=== PATIENT | female | born 2005 | race Caucasian/White ===

== ENCOUNTER 2024-06-21 13:03 | Emergency (ER) | payer BC, SELFPAY ==
[2024-06-21 13:10] VITALS: BP 114/73; PULSE 115; RESP 18; TEMP 37.8; O2SAT 100; BMI 17.9
--- NOTE | 2024-06-21 13:24 | ED.GENADULT ---
HPI - General Adult General Chief complaint: Shortness of Breath/Dyspnea Stated complaint: Shortness of breath Time Seen by Provider: 06/21/24 13:22 History of Present Illness HPI narrative: Pt started feeling sick 8 days ago, having a fever, headache, coughing. Yesterday went into UC yesterday d/t not feeling better, swabbed negative for covid/flu. Was prescribed steroids and inhaler, feels she is not getting any better, is SOB and has pain with inspiration. 19-year-old woman presenting to the emergency department concern of fever headache coughing and chest pain. Was seen yesterday negative for influenza and COVID She is reporting some pleuritic chest discomfort. Denies sore throat. In urgent care yesterday was given prednisone for 5 days. In other health consult was suggested that perhaps negative swab was because she had been sick for this duration at this point. On arrival here she does have and elevated temperature of 100.1?. Pulse is 115. Related Data Home Medications ?Medication ?Instructions ?Recorded ?Confirmed bupropion HCl 150 mg 24 hr tablet, 150 mg PO DAILY 06/20/24 06/21/24 extended release dextroamphetamine-amphetamine 5 mg 1 tab PO BID 06/20/24 06/21/24 tablet pregabalin 25 mg capsule 25 mg PO QPM 06/20/24 06/21/24 Previous Rx's ?Medication ?Instructions ?Recorded albuterol sulfate 90 mcg/actuation 2 puff inhalation Q4-6H PRN 06/20/24 aerosol inhaler shortness of breath or wheezing #6.7 grams Allergies Allergy/AdvReac Type Severity Reaction Status Date / Time No Known Drug Allergies Allergy Verified 06/21/24 13:16 Review of Systems Status of ROS: Reports: 6 or more systems reviewed and unremarkable except as noted in History and below Exam Narrative: Exam Narrative: Quiet. Calm. Appears mildly anxious. She is worrying her hands. Has a little challenge opening her mouth/throat but is moist without erythema. Neck is supple without lymphadenopathy. Lungs are clear with good breath sounds throughout. Little difficult to auscultate with hesitant respiratory efforts. Extremities look well perfused without edema. I am not able to reproduce chest discomfort to palpation. Const: Vital Signs, click to edit/add: Vital Signs - 24 hr 06/21/24 13:10 Temperature 100.1 F H Pulse Rate [Right Pulse Oximeter] 115 H Respiratory Rate 18 Blood Pressure [Ri ght Upper Arm] 114/73 Pulse Oximetry 100 Oxygen Delivery Me thod Room Air Documenting provider has reviewed patient's vital signs: yes Course Vital Signs Vital signs: Initial Vital Signs Temperature 100.1 F H 06/21/24 13:10 Temperature Source Temporal Artery Scan 06/21/24 13:10 Pulse Rate 115 H 06/21/24 13:10 Pulse Rhythm Regular 06/21/24 13:10 Respiratory Rate 18 06/21/24 13:10 Blood Pressure 114/73 06/21/24 13:10 Blood Pressure Mean 86 06/21/24 13:10 Blood Pressure Position Sitting 06/21/24 13:10 Pulse Oximetry 100 06/21/24 13:10 Oxygen Delivery Method Room Air 06/21/24 13:10 Vital Signs Temperature 100.1 F H 06/21/24 13:10 Pulse Rate 115 H 06/21/24 13:10 Respiratory Rate 18 06/21/24 13:10 Blood Pressure 114/73 06/21/24 13:10 Pulse Oximetry 100 06/21/24 13:10 Oxygen Delivery Method Room Air 06/21/24 13:10 Temperature 97.6 F 06/21/24 15:20 Pulse Rate 84 06/21/24 15:20 Respiratory Rate 18 06/21/24 13:10 Blood Pressure 114/73 06/21/24 13:10 Pulse Oximetry 100 06/21/24 15:20 Oxygen Delivery Method Room Air 06/21/24 15:20 Medications Administered Medications: Discontinued Medications Generic Name Dose Route Start Last Admin Trade Name Freq PRN Reason Stop Dose Admin Ibuprofen 600 mg 06/21/24 13:48 06/21/24 13:58 Ibuprofen 200 Mg Tablet PO 06/21/24 13:49 600 mg ONCE ONE Administration Medical Decision Making MDM Narrative Medical decision making narrative: Differential includes myalgia, pneumonia, pleuritis or pericarditis. Possible pulmonary embolus I suppose but I think more of an inflammatory process otherwise given recent illness. No known increased risk for clotting. Would rescreen for COVID and influenza. Pericarditis might be contraindication to steroids but symptoms seem more pleuritic than cardiac. Chest x-ray independently reviewed by me looks to be absent of effusion or pneumothorax or infiltrate. Radiology over-read below Indication: Cough and shortness of breath. Pleuritic chest pain Technique: Chest 2 views Comparison: Chest x-ray 06/20/2024 Findings/Impression: Cardiovascular and mediastinum: Heart size and vasculature are normal in caliber and appearance. Mediastinum is within normal limits. Lungs and pleural spaces: Lungs are clear. No sign of infiltrate or mass. No sign of pleural effusion. No pneumothorax. Bones and soft tissues: No significant findings. Swabs were positive for COVID Discussed potential duration of illness and comorbidities. I do not think would recommend Paxlovid at this point. Will need to focus on symptom relief for now. The prednisone already prescribed might be helpful. See patient discharge plan for further discussion Can take up to 600 mg of ibuprofen or up to 850 mg of acetaminophen per dose for discomfort or fever. Be seen for marked increase in persistent chest pain or shortness of breath, inability to control fever, symptoms lasting another for 5 days. Take prescriptions as written. Stay well-hydrated. Can temporarily double your Vistaril dosing as discussed as needed or perhaps supplement with a tablet of diphenhydramine 25 mg if the prednisone proves to be too stimulating. Medical Records Medical records reviewed: Yes I reviewed the patient's medical records Lab Data Labs: Lab Results 06/21/24 Range/Units Unknown SARS-CoV-2 (PCR) POSITIVE SARS-CoV-2 A (Negative) Influenza Type A (PCR) Negative PCR FLU A (Negative) Influenza Type B (PCR) Negative PCR FLU B (Negative) RSV (PCR) Negative PCR RSV (Negative) Discharge Plan Discharge Clinical Impression: COVID-19 Patient Disposition: Home, Self-Care Condition: Improved Additional Instructions: Can take up to 600 mg of ibuprofen or up to 850 mg of acetaminophen per dose for discomfort or fever. Be seen for marked increase in persistent chest pain or shortness of breath, inability to control fever, symptoms lasting another for 5 days. Take prescriptions as written. Stay well-hydrated. Can temporarily double your Vistaril dosing as discussed as needed or perhaps supplement with a tablet of diphenhydramine 25 mg if the prednisone proves to be too stimulating. Prescriptions: No Action dextroamphetamine-amphetamine 5 mg tablet 1 tab PO BID bupropion HCl 150 mg tablet extended release 24 hr 150 mg PO DAILY pregabalin 25 mg capsule 25 mg PO QPM albuterol sulfate 90 mcg/actuation HFA aerosol inhaler 2 puff inhalation Q4-6H PRN (Reason: shortness of breath or wheezing) Qty: 6.7 0RF Follow Up/Referrals: Provider,Not a Local [Primary Care Provider] - Stand Alone Forms: [employer] Info Instructions
--- NOTE | 2024-06-21 13:48 | CRLHL7_ITS ---
For Patients: As a result of the Century Cures Act, medical imaging exams and procedure reports are released immediately into your electronic medical record. You may view this report before your referring provider. If you have questions, please contact your health care provider. Indication: Cough and shortness of breath. Pleuritic chest pain Technique: Chest 2 views Comparison: Chest x-ray 06/20/2024 Findings/Impression: Cardiovascular and mediastinum: Heart size and vasculature are normal in caliber and appearance. Mediastinum is within normal limits. Lungs and pleural spaces: Lungs are clear. No sign of infiltrate or mass. No sign of pleural effusion. No pneumothorax. Bones and soft tissues: No significant findings. Dictated by Irving Brower MD @ 06/21/2024 2:19:55 PM (Electronically Signed)
[2024-06-21] MEDS: IBUPROFEN 200 MG TABLET 600 MG PO (13:58)
[2024-06-21 14:55] LABS: PCR FLU A Negative PCR FLU A (Negative); PCR FLU B Negative PCR FLU B (Negative); PCR RSV Negative PCR RSV (Negative); SARS PCR* POSITIVE SARS-CoV-2 (Negative)
[2024-06-21 15:20] VITALS: PULSE 84; TEMP 36.4; O2SAT 100
== END 2024-06-21 15:28 | disposition home or self-care (01) ==
PROVIDERS: Emergency Provider Family Medicine
DX: U07.1 COVID-19 (principal)
CPT/HCPCS: 71046; 87631; 99283; 99284; A9270

== ENCOUNTER 2024-07-22 01:51 | Emergency (ER) | payer BC, SELFPAY ==
[2024-07-22 02:01] VITALS: BP 106/72; RESP 18; TEMP 37.2; O2SAT 99; BMI 18.6
[2024-07-22] MEDS: ONDANSETRON ODT 4 MG TAB 8 MG PO (02:05)
--- NOTE | 2024-07-22 02:39 | ED.NURSE ---
pt given water and crackers for oral challenge.
[2024-07-22 02:50] LABS: PCR FLU A Negative PCR FLU A (Negative); PCR FLU B Negative PCR FLU B (Negative); PCR RSV Negative PCR RSV (Negative); SARS PCR* Negative SARS-CoV-2 (Negative)
--- NOTE | 2024-07-22 03:34 | ED.NURSE ---
pt tolerated fluids and crackers without nausea.
--- NOTE | 2024-07-22 03:48 | ED_ITS ---
HPI - General Adult General Chief complaint: Nausea/Vomiting Stated complaint: fever, nausea Time Seen by Provider: 07/22/24 02:13 Source: patient Mode of arrival: ambulatory Limitations: no limitations History of Present Illness HPI narrative: 19-year-old female presents the emergency department with a 18 hour history of mild sore throat, 10 hour history of nausea with 8 hour history of intermittent vomiting. Fever to 100.2 about 18 hours ago. No prior history of abdominal surgeries. No abdominal pain. No dysuria. Denies chance of . Lots of similar illness in close contacts at [email or web address]. Did not try any medications to help with symptoms. No hematemesis, bowel movements have been normal thus far. No bloody stools or watery diarrhea. No injury or trauma. No gynecological changes or dysuria. Past medical history notable for ADHD. Home meds are Adderall, Lyrica at bedtime and bupropion. No recreational drugs or smoking. ROS is notable for the GI in generalized symptoms as above, otherwise denies times 12 systems. Related Data Home Medications ?Medication ?Instructions ?Recorded ?Confirmed bupropion HCl 150 mg 24 hr tablet, 150 mg PO DAILY 06/20/24 06/21/24 extended release dextroamphetamine-amphetamine 5 mg 1 tab PO BID 06/20/24 06/21/24 tablet pregabalin 25 mg capsule 25 mg PO QPM 06/20/24 06/21/24 Previous Rx's ?Medication ?Instructions ?Recorded albuterol sulfate 90 mcg/actuation 2 puff inhalation Q4-6H PRN 06/20/24 aerosol inhaler shortness of breath or wheezing #6.7 grams Allergies Allergy/AdvReac Type Severity Reaction Status Date / Time No Known Drug Allergies Allergy Verified 07/22/24 02:03 [facility] Social History Non-prescribed substance use: denies use Exam Const: Vital Signs, click to edit/add: Vital Signs - 24 hr 07/22/24 02:01 Temperature 98.9 F Respiratory Rate 18 Blood Pressure [Ri ght Upper Arm] 106/72 Pulse Oximetry 99 Oxygen Delivery Me thod Room Air Documenting provider has reviewed patient's vital signs: yes Common normals: no apparent distress and alert General appearance: cooperative, comfortable and well kempt HENMT: Common normals: normocephalic, moist oral mucous membranes and oropharynx normal Head and scalp: normocephalic Face and sinus: normal facial exam Mouth: oral and palatal mucosa normal Eye: Common normals: conjunctivae normal General eye: normal appearance of both eyes Conjunctiva: conjunctiva(e) normal Neck & C-Spine: Common normals: full ROM and no lymphadenopathy General: normal visual inspection Resp: Common normals: normal respiratory effort, no use of accessory muscles and clear to auscultation bilaterally Effort & inspection: able to speak in complete sentences Auscultation: clear to auscultation bilaterally Cardio: Common normals: regular rate, regular rhythm, S1 normal heart sound, S2 normal heart sound and no murmurs Rate: regular rate Rhythm: regular rhythm Heart sounds: S1 normal and S2 normal GI: Common normals: Normal to inspection, nondistended, normoactive bowel sounds present, soft to palpation, non-tender, no hepatosplenomegaly and no masses Palpation: soft and no hepatosplenomegaly Neuro: Sensorium/orientation: alert Speech: speech normal Motor exam: no movement abnormalities noted Psych: Common normals: thought process normal and speech normal Appearance: well kempt Attitude: engaged Activity/motor behavior: appropriate eye contact Speech: normal speech Mood and affect: euthymic mood Thought process: normal thought process Insight: insight good Judgement: judgment good Skin: Common normals: no rashes or lesions noted General skin exam: no rashes or lesions noted Course Course ED Course: 19-year-old female with acute nausea and vomiting with low-grade fever. No features of abdominal pain, sepsis or severe dehydration. Differential diagnosis including most likely gastroenteritis but cannot exclude pancreatitis, colitis, intestinal obstruction, amongst other illness. Clinically looks very good. Will do a trial of oral Zofran, wait 30 minutes and try oral rehydration and food. If she tolerates this well will plan to discharge with additional oral Zofran and typical gastroenteritis precautions. Reevaluation(s) Reevaluation #1: Update: Based on high q.d. of other patients, I was not able to re-evaluate patient but nursing team reported that she held down oral liquids and crackers with no difficulty, feeling better after the Zofran. Patient will be discharged with oral Zofran as needed, automatically take a dose 8 hours from the 1 given in the ED and then switch to every 6 hours as needed. Okay to use [id number] Imodium, ibuprofen, Tylenol as needed. Alarm symptoms return to reviewed that would warrant ED presentation. Written instructions provided. Vital Signs Vital signs: Initial Vital Signs Temperature 98.9 F 07/22/24 02:01 Temperature Source Temporal Artery Scan 07/22/24 02:01 Respiratory Rate 18 07/22/24 02:01 Blood Pressure 106/72 07/22/24 02:01 Blood Pressure Mean 83 07/22/24 02:01 Blood Pressure Position Supine 07/22/24 02:01 Pulse Oximetry 99 07/22/24 02:01 Oxygen Delivery Method Room Air 07/22/24 02:01 Vital Signs Temperature 98.9 F 07/22/24 02:01 Respiratory Rate 18 07/22/24 02:01 Blood Pressure 106/72 07/22/24 02:01 Pulse Oximetry 99 07/22/24 02:01 Oxygen Delivery Method Room Air 07/22/24 02:01 Temperature 98.9 F 07/22/24 02:01 Respiratory Rate 18 07/22/24 02:01 Blood Pressure 106/72 07/22/24 02:01 Pulse Oximetry 99 07/22/24 02:01 Oxygen Delivery Method Room Air 07/22/24 02:01 Medications Administered Medications: Discontinued Medications Generic Name Dose Route Start Last Admin Trade Name Freq PRN Reason Stop Dose Admin Ondansetron HCl 8 mg 07/22/24 02:01 07/22/24 02:05 Ondansetron Odt 4 Mg Tab PO 07/22/24 02:02 8 mg ONCE ONE Administration Medical Decision Making Lab Data Labs: Lab Results 07/22/24 Range/Units 02:04 SARS-CoV-2 (PCR) Negative SARS-CoV-2 (Negative) Influenza Type A (PCR) Negative PCR FLU A (Negative) Influenza Type B (PCR) Negative PCR FLU B (Negative) RSV (PCR) Negative PCR RSV (Negative) Discharge Plan Discharge Clinical Impression: Gastroenteritis Patient Disposition: Home w/ Parent or Adult Condition: Improved Instructions: Gastroenteritis (DC) Additional Instructions: Your symptoms seem consistent with gastroenteritis. This is highly contagious and typically caused by a virus. Symptoms tend to last 2-5 days. It is not uncommon to have loose stools or diarrhea also. I have given her prescription for ondansetron, a common anti nausea medication. It is okay to also use Tylenol 1000 mg every 6 hours and or ibuprofen 600 mg every 6 hours to help with sore throat, body aches and low-grade fever. Automatically take another dose of the anti nausea medicine at around 8:00 a.m. today. Continue using the medication up to every 6 hours if you continue to have symptoms. It is okay to use [id number] Imodium 2-4 mg up to every 2 hours as needed also for diarrhea. Drink lots of fluids, soft, bland salty foods encouraged once you are feeling better. He is return to the emergency department if you are unable to hold down any liquids for over 24 hours, have fevers over 101 that are not improving with Tylenol and ibuprofen, severe pain, bloody diarrhea or other alarming symptoms. You should be able to return to class on Tuesday as planned. Activity Level: Activity as Tolerated Discharge Diet: Regular Prescriptions: No Action dextroamphetamine-amphetamine 5 mg tablet 1 tab PO BID bupropion HCl 150 mg tablet extended release 24 hr 150 mg PO DAILY pregabalin 25 mg capsule 25 mg PO QPM albuterol sulfate 90 mcg/actuation HFA aerosol inhaler 2 puff inhalation Q4-6H PRN (Reason: shortness of breath or wheezing) Qty: 6.7 0RF Follow Up/Referrals: Provider,Not a Local [Primary Care Provider] - Stand Alone Forms: [employer] Info Instructions
== END 2024-07-22 03:35 | disposition home or self-care (01) ==
LOC: ED 03:23
PROVIDERS: Emergency Provider Family Medicine
DX: K52.9 Noninfective gastroenteritis and colitis, unspecified (principal)
CPT/HCPCS: 87631; 99283; A9270